=== PATIENT | female | born 1985 | race African-American/Black ===

== ENCOUNTER 2017-03-17 09:28 | Emergency (ER) | payer MEDICAID ==
[~2017-03-17] VITALS: Ht 160 cm; Wt 90.0 kg
[~2017-03-17 09:28] MED LIST: AZIT500T2 PO; COLA100C5 PO; ERYT.5%O RIGHT EYE; FERR325T18 PO; VITA250T3 PO
[2017-03-17 09:31] VITALS: BP 119/72; PULSE 89; RESP 16; TEMP 98.3; O2SAT 100
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
[2017-03-17] MEDS ORDERED: IBUPROFEN 800 MG TAB PO ONE (10:30)
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
[2017-03-17] MEDS ORDERED: IBUP1TAB7 PO (11:13)
[2017-03-17] MEDS ORDERED: TRAM50TA PO (11:13)
== END 2017-03-17 12:21 | disposition home or self-care (01) ==
LOC: NEPK 09:28
DX: S83.92XA Sprain of unspecified site of left knee, initial encounter (principal); V29.9XXA Motorcycle rider (driver) (passenger) injured in unspecified traffic accident, initial encounter
CPT/HCPCS: 73564; 99283; E0113; L1830

== ENCOUNTER 2017-07-30 08:46 | Emergency (ER) | payer OTHER ==
[2017-07-30] VITALS (7 sets, daily range): BP systolic 106–130; BP diastolic 51–75; PULSE 88–140; RESP 16–18; TEMP 98.2–103.2; O2SAT 99–100
[~2017-07-30 08:46] MED LIST changes: +IBUP1TAB7 PO; +TRAM50TA PO
[2017-07-30] MEDS ORDERED: IOHEXOL 350 MG/ML 10 ML VIAL (for RAD DIAG) IVCONTRAST ONE (08:47)
[2017-07-30] MEDS ORDERED: HYDR-3580 PO (09:00)
[2017-07-30] MEDS ORDERED: ACETAMINOPHEN 325 MG TAB PO ONE (09:30)
[2017-07-30] MEDS ORDERED: SODIUM CHLOR 0.9% 1000 ML INJ 1,000 ML IV ONE ×2 (09:30)
[2017-07-30] MEDS ORDERED: AMPICILLIN-SULBACTAM INJ 3 GM in SODIUM CHLORIDE 0.9% INJ 100 ML IV ONE (09:30)
[2017-07-30] MEDS ORDERED: DEXAMETHASONE SOD PHOS 20 MG/5 ML VIAL IV PUSH ONE (09:30)
--- NOTE | 2017-07-30 09:31 | PD ---
HPI Chief Complaint: Cold / Flu Symptoms Time Seen by Provider: 09:08 Travel History International Travel<30 days: No Contact w/Intl Traveler<30days: No Traveled to known affect area: No History of Present Illness HPI Patient is a 31-year-old female who presents to the emergency room with multiple complaints. Patient reports that since yesterday, she has been having sore throat with fever and chills. Reports that this morning, she began to have chest pain. Patient reports that pain is located to her left breast, pain is sharp and stabbing in nature and is exacerbated with taking a deep breath. Reports no sob at this time. Denies any diaphoresis, denies n/v. Patient denies cough/congestion. Denies sick contacts. Denies any recent travels/trips. Denies using drugs or smoking tobacco. PFSH Past Medical History Diminished Hearing: No Musculoskeletal: Yes (TORN ACL ) Immunizations Current: Yes Tetanus Vaccination: > 5 Years Influenza Vaccination: No ?: Not LMP: 07/10/17 : 2 Para: 3 Miscarriage: 0 : 0 Ectopic : Yes Ovarian Cysts: Yes Tubal Ligation: Yes Past Surgical History Abdominal Surgery: Yes (C SEC) Section: Yes (X2) Other Surgery: Yes (LEFT FALLOPIAN TUBE REMOVED) Social History Alcohol Use: Yes (SOCIALLY MIX DRINKS) Tobacco Use: No Substance Use: No Allergies-Medications (Allergen,Severity, Reaction): Coded Allergies: No Known Allergies (Verified Adverse Reaction, Unknown, 07/30/17) Reported Meds & Prescriptions Reported Meds & Active Scripts Active Reported Hydrocodone-Acetaminophen 7.5 Mg-325 Mg Tab 1 Tab PO Q6H PRN Review of Systems General / Constitutional: No: Fever Eyes: No: Visual changes HENT: Positive: Headaches, Sore Throat, No: Lightheadedness, Neck Pain Cardiovascular: Positive: Chest Pain or Discomfort, Palpitations, No: Diaphoresis Respiratory: No: Cough, Shortness of Breath, Wheezing Gastrointestinal: No: Nausea, Vomiting, Diarrhea, Abdominal Pain Genitourinary: No: Dysuria Musculoskeletal: No: Pain Skin: No Rash Neurologic: No: Weakness Psychiatric: No: Depression Endocrine: No: Polydipsia Hematologic/Lymphatic: No: Easy Bruising Physical Exam Narrative GENERAL: Moderate distress SKIN: Focused skin assessment warm/dry. HEAD: Atraumatic. Normocephalic. EYES: Pupils equal and round. No scleral icterus. No injection or drainage. ENT: No nasal bleeding or discharge. Mucous membranes pink and moist. Patient with white pustules to b/l posterior pharynx NECK: Trachea midline. No JVD. CARDIOVASCULAR: Tachycardia. No murmur appreciated. RESPIRATORY: No accessory muscle use. Clear to auscultation. Breath sounds equal bilaterally. GASTROINTESTINAL: Abdomen soft, non-tender, nondistended. Hepatic and splenic margins not palpable. MUSCULOSKELETAL: No obvious deformities. No clubbing. No cyanosis. No edema. NEUROLOGICAL: Awake and alert. No obvious cranial nerve deficits. Motor grossly within normal limits. Normal speech. PSYCHIATRIC: Appropriate mood and affect; insight and judgment normal. Data Data Last Documented VS Vital Signs Date Time Temp Pulse Resp B/P (MAP) Pulse Ox O2 Delivery O2 Flow Rate FiO2 07/30/17 14:17 98.2 101 18 115/68 (84) 100 Room Air Orders Orders Sepsis Workup Initiated (07/30/17 ) Electrocardiogram (07/30/17 09:16) Complete Blood Count With Diff (07/30/17 09:16) Comprehensive Metabolic Panel (07/30/17 09:16) Lactic Acid Sepsis Protocol (07/30/17 09:16) Magnesium (Mg) (07/30/17 09:16) Ckmb (Isoenzyme) Profile (07/30/17 09:16) Troponin I (07/30/17 09:16) Urinalysis - C+S If Indicated (07/30/17 09:16) Blood Culture (07/30/17 09:16) Chest, Single Ap (07/30/17 09:16) Blood Glucose (07/30/17 09:16) Ecg Monitoring (07/30/17 09:16) Iv Access Insert/Monitor (07/30/17 09:16) Oximetry (07/30/17 09:16) Oxygen Administration (07/30/17 09:16) D-Dimer (07/30/17 09:16) Prothrombin Time / Inr (Pt) (07/30/17 09:16) Act Partial Throm Time (Ptt) (07/30/17 09:16) Group A Rapid Strep Screen (07/30/17 09:16) Sodium Chlor 0.9% 1000 Ml Inj (Ns 1000 M (07/30/17 09:30) Sodium Chlor 0.9% 1000 Ml Inj (Ns 1000 M (07/30/17 09:30) Ampicillin-Sulbactam Inj (Unasyn Inj) (07/30/17 09:30) Dexamethasone Inj (Decadron Inj) (07/30/17 09:30) Ed Urine Pregnancytest Poc (07/30/17 09:16) Acetaminophen (Tylenol) (07/30/17 09:30) Ct Pulmonary Angiogram (07/30/17 10:23) Potassium Chloride (Kcl) (07/30/17 10:30) CKMB (07/30/17 09:00) CKMB% (07/30/17 09:00) Iohexol 350 Inj (Omnipaque 350 Inj) (07/30/17 08:47) Sodium Chlorid 0.9% 500 Ml Inj (Ns 500 M (07/30/17 13:15) Labs Laboratory Tests Test 07/30/17 09:00 07/30/17 09:35 07/30/17 10:50 White Blood Count 12.0 TH/MM3 Red Blood Count 4.14 MIL/MM3 Hemoglobin 11.1 GM/DL Hematocrit 34.1 % Mean Corpuscular Volume 82.4 FL Mean Corpuscular Hemoglobin 26.7 PG Mean Corpuscular Hemoglobin Concent 32.4 % Red Cell Distribution Width 14.3 % Platelet Count 291 TH/MM3 Mean Platelet Volume 9.1 FL Neutrophils (%) (Auto) 84.9 % Lymphocytes (%) (Auto) 9.1 % Monocytes (%) (Auto) 5.8 % Eosinophils (%) (Auto) 0.0 % Basophils (%) (Auto) 0.2 % Neutrophils # (Auto) 10.2 TH/MM3 Lymphocytes # (Auto) 1.1 TH/MM3 Monocytes # (Auto) 0.7 TH/MM3 Eosinophils # (Auto) 0.0 TH/MM3 Basophils # (Auto) 0.0 TH/MM3 CBC Comment DIFF FINAL Differential Comment Prothrombin Time 11.4 SEC Prothromb Time International Ratio 1.1 RATIO Activated Partial Thromboplast Time 30.7 SEC D-Dimer Quantitative (PE/DVT) 0.51 MG/L FEU Blood Urea Nitrogen 6 MG/DL Creatinine 0.75 MG/DL Random Glucose 116 MG/DL Total Protein 7.5 GM/DL Albumin 3.3 GM/DL Calcium Level 8.4 MG/DL Magnesium Level 1.9 MG/DL Alkaline Phosphatase 96 U/L Aspartate Amino Transf (AST/SGOT) 25 U/L Alanine Aminotransferase (ALT/SGPT) 28 U/L Total Bilirubin 0.5 MG/DL Sodium Level 137 MEQ/L Potassium Level 3.2 MEQ/L Chloride Level 102 MEQ/L Carbon Dioxide Level 26.6 MEQ/L Anion Gap 8 MEQ/L Estimat Glomerular Filtration Rate 108 ML/MIN Total Creatine Kinase 101 U/L Creatine Kinase MB LESS THAN 0.5 NG/ML Troponin I LESS THAN 0.02 NG/ML Lactic Acid Level 0.9 mmol/L Urine Color YELLOW Urine Turbidity HAZY Urine pH 6.5 Urine Specific [place] 1.026 Urine Protein 30 mg/dL Urine Glucose (UA) NEG mg/dL Urine Ketones 80 mg/dL Urine Occult Blood NEG Urine Nitrite NEG Urine Bilirubin NEG Urine Urobilinogen 2.0 MG/DL Urine Leukocyte Esterase NEG Urine RBC 1 /hpf Urine WBC 1 /hpf Urine Squamous Epithelial Cells 5 /hpf Urine Mucus FEW /lpf Microscopic Urinalysis Comment CATH-CULT NOT IND MDM Medical Decision Making Medical Screen Exam Complete: Yes Emergency Medical Condition: Yes Medical Record Reviewed: Yes Interpretation(s) Vital Signs Date Time Temp Pulse Resp B/P (MAP) Pulse Ox O2 Delivery O2 Flow Rate FiO2 07/30/17 09:00 123 18 121/75 (90) 100 Room Air 07/30/17 08:50 103.2 140 16 130/68 (88) 99 Differential Diagnosis Differential includes strep pharyngitis, pneumonia, endocarditis, pericarditis, bacteremia, viral syndrome Narrative Course During the course of the patients emergency department visit, the patients history, examination, and differential diagnosis were reviewed with the patient. The patient was placed on a quality assurance monitor chassis with oximetry and frequent blood pressure monitoring. The patient had an IV access obtained and blood work sent for analysis. Patient presents tachycardic and febrile, patient with SIRS criteria, sepsis workup was initiated. The patient was initially provided IV fluids, IV Unasyn as she was likely has strep pharyngitis, IV steroids as well as Toradol and Tylenol for her fever. The patients laboratory studies were reviewed and remarkable for CBC & BMP Diagram 07/30/17 09:00 Total Protein 7.5, Albumin 3.3 L, Calcium Level 8.4 L, Magnesium Level 1.9, Alkaline Phosphatase 96, Aspartate Amino Transf (AST/SGOT) 25, Alanine Aminotransferase (ALT/SGPT) 28, Total Bilirubin 0.5 Lactic acid is 0.9 Microbiology Date/Time Source Procedure Growth Status 07/30/17 09:30 Blood Peripheral Aerobic Blood Culture Pending Received 07/30/17 09:30 Blood Peripheral Anaerobic Blood Culture Pending Received 07/30/17 09:15 Blood Peripheral Aerobic Blood Culture Pending Received 07/30/17 09:15 Blood Peripheral Anaerobic Blood Culture Pending Received 07/30/17 09:30 Throat Group A Streptococcus Screen (BABAR) - Final Pos For Grp A Strep Antigen Complete Radiology studies were reviewed and remarkable for Last Impressions Chest X-Ray 07/30/17915 Signed Impressions: CONCLUSION: No acute cardiopulmonary findings. Patient with a d-dimer of 0.51, discussed with patient need for CTA to rule out PE. Patient agreeable with plan of care. Overall, patient reports that she is feeling much better at this time. Last Impressions CT Angiography 07/30/17 1023 Signed Impressions: CONCLUSION: 1. Negative for pulmonary embolus. No acute findings. Chest X-Ray 07/30/17915 Signed Impressions: CONCLUSION: No acute cardiopulmonary findings. All labs and all studies were reviewed, patient with only positive finding of positive for group A strep. Patient was reevaluated and request to be discharged to home, she does not wish for admission to the hospital. Patient has been pancultured at this time, reports that she will return to the emergency room if her cultures are positive. Signs and symptoms of when to return to the emergency room was reviewed with patient in detail. Vital Signs Date Time Temp Pulse Resp B/P (MAP) Pulse Ox O2 Delivery O2 Flow Rate FiO2 07/30/17 14:17 98.2 101 18 115/68 (84) 100 Room Air 07/30/17 11:00 110 18 108/51 (70) 100 Room Air 07/30/17 10:00 120 16 125/60 (81) 100 Room Air 07/30/17 09:00 100 Room Air 07/30/17 09:00 123 18 121/75 (90) 100 Room Air 07/30/17 08:50 103.2 140 16 130/68 (88) 99 VSS at discharge Sepsis Criteria SIRS Criteria (2 or more): Temp > 100.9 or < 96.8, Heart rate over 90, WBC > 50958, < 4000 or > 10% bands Criteria Outcome: Meets SIRS criteria Diagnosis Primary Impression: Strep pharyngitis Patient Instructions: General Instructions Additional Instructions: Please provide patient with a copy of their lab work and studies at discharge* * Please follow up with your primary care doctor in 1-2 days Return to the ER if symptoms worsen or progress Return to the ER as needed Please follow up with all cultures from today Drink plenty of fluids Med/Other Pt SpecificInfo: Prescription(s) given Scripts Amoxicillin-Clavulanate (Augmentin) 875-125 Mg Tab 1 TAB PO BID for Infection for 10 Days, #20 TAB 0 Refills Prov: Rozina Vega DO 07/30/17 Disposition: 01 DISCHARGE HOME Condition: Stable Rozina Vega DO July 30, 2017 09:31
--- NOTE | 2017-07-30 09:49 | RADRPT ---
EXAM DATE: 07/30/2017 9:43 AM EDT AGE/SEX: 31 years / Female INDICATIONS: Chest pain, sore throat, and fever. CLINICAL DATA: This is the patient's initial encounter. Patient reports that signs and symptoms have been present for 1 day and indicates a pain score of 9/10. MEDICAL/SURGICAL HISTORY: None. None. COMPARISON: No prior [place] exams available for comparison. FINDINGS: A single AP view of the chest demonstrates the lungs to be symmetrically aerated without evidence of mass, infiltrate or effusion. The cardiomediastinal contours are unremarkable. Osseous structures a re intact. CONCLUSION: No acute cardiopulmonary findings. Electronically signed by: Isaac Leblanc MD 07/30/2017 9:48 AM EDT
[2017-07-30 09:54] LABS: AUTOMATED NEUTROPHIL # 10.2 TH/MM3 (1.8-7.7); BASOPHIL % 0.2 % (0.0-2.0); HEMATOCRIT 34.1 % (35.0-46.0); HEMOGLOBIN 11.1 GM/DL (11.6-15.3); LYMPH % 9.1 % (9.0-44.0); LYMPHOCYTE # 1.1 TH/MM3 (1.0-4.8); MEAN CELL VOLUME 82.4 FL (80.0-100.0); MEAN CORPUSCULAR HEMOGLOBIN 26.7 PG (27.0-34.0); MEAN CORPUSCULAR HGB CONC 32.4 % (32.0-36.0); MEAN PLATELET VOLUME 9.1 FL (7.0-11.0); MONO % 5.8 % (0.0-8.0); MONOCYTE # 0.7 TH/MM3 (0-0.9); NEUT % 84.9 % (16.0-70.0); PLATELET COUNT 291 TH/MM3 (150-450); RED BLOOD COUNT 4.14 MIL/MM3 (4.00-5.30); RED CELL DISTRIBUTION WIDTH 14.3 % (11.6-17.2)
[2017-07-30 10:08] LABS: INTERNATIONAL NORMALIZED RATIO 1.1 RATIO; PROTHROMBIN TIME - PATIENT 11.4 SEC (9.8-11.6)
[2017-07-30 10:12] LABS: D-DIMER 0.51 MG/L FEU (0.00-0.50)
[2017-07-30 10:19] LABS: ALBUMIN 3.3 GM/DL (3.4-5.0); AST (GOT) 25 U/L (15-37); BICARBONATE 26.6 MEQ/L (21.0-32.0); BLOOD UREA NITROGEN 6 MG/DL (7-18); CALCIUM 8.4 MG/DL (8.5-10.1); CHLORIDE 102 MEQ/L (98-107); CREATININE 0.75 MG/DL (0.50-1.00); GLOMERULAR FILTRATION RATE 108 ML/MIN (>89); GLUCOSE,RANDOM 116 MG/DL (74-106); MAGNESIUM 1.9 MG/DL (1.5-2.5); SODIUM (NA) 137 MEQ/L (136-145)
[2017-07-30 10:21] LABS: ALT (GPT) 28 U/L (10-53)
[2017-07-30 10:24] LABS: ALKALINE PHOSPHATASE 96 U/L (45-117); TOTAL BILIRUBIN ADULT 0.5 MG/DL (0.2-1.0); TOTAL PROTEIN 7.5 GM/DL (6.4-8.2); TROPONIN I LESS THAN 0.02 NG/ML (0.02-0.05)
[2017-07-30] MEDS ORDERED: POTASSIUM CHLORIDE 10 MEQ CONTROLLED RELEASE TAB PO ONE (10:30)
[2017-07-30 11:18] LABS: BILIRUBIN, URINE NEG (NEG); BLOOD, URINE NEG (NEG); GLUCOSE,URINE NEG (NEG); KETONE, URINE 80 mg/dL (NEG); MUCUS URINE FEW /lpf (OCC); NITRITE,URINE NEG (NEG); PH, URINE 6.5 (5.0-8.5); SQUAMOUS EPITHELIAL CELL URINE 5 /hpf (0-5); URINE COLOR YELLOW (YELLW/STRAW); URINE LEUKOCYTE ESTERASE NEG (NEG)
--- NOTE | 2017-07-30 12:49 | RADRPT ---
EXAM DATE: 07/30/2017 12:31 PM EDT AGE/SEX: 31 years / Female INDICATIONS: Chest pain, shortness of breath, fever. CLINICAL DATA: This is the patient's initial encounter. Patient reports that signs and symptoms have been present for 1 day and indicates a pain score of 4/10. MEDICAL/SURGICAL HISTORY: None. Tubal ligation. RADIATION DOSE: 10.44 CTDI (mGy) COMPARISON: No prior exams available for comparison. TECHNIQUE: Volumetric scanning was performed using a multi-row detector CT scanner during bolus infu sami of 75 ml Omnipaque 350 (iohexol) nonionic water-soluble contrast as a single exam dose. The parker a was post processed with a variety of visualization algorithms including full volume maximum intensi ty projection and sliding thin slab reformation. Using automated exposure control and adjustment of the mA and/or kV according to patient size, radiation dose was kept as low as reasonably achievable t o obtain optimal diagnostic quality images. FINDINGS: No filling defects in the pulmonary arteries to suggest pulmonary embolic disease. Minimal dependent atelectasis in the lungs. No pleural or pericardial effusion. There is no hilar, mediastinal or axillary adenopathy. No acute findings in the upper abdomen. CONCLUSION: 1. Negative for pulmonary embolus. No acute findings. Electronically signed by: Camron Larsen MD 07/30/2017 12:48 PM EDT
[2017-07-30] MEDS ORDERED: SODIUM CHLORID 0.9% 500 ML INJ 500 ML IV ONE (13:15)
--- NOTE | 2017-07-30 13:53 | EKG ---
Date Performed: 07/30/2017 Time Performed: 10:10:28 PTAGE: 31 years EKG: SINUS TACHYCARDIA WITH SHORT CA INTERVAL NONSPECIFIC ST & T-WAVE ABNORMALITY ABNORMAL ECG NO PREVIOUS TRACING DOCTOR: Michele Green Interpretating Date/Time 07/30/2017 13:51:29
[2017-07-30] MEDS ORDERED: AUGM875T3 PO (14:45)
== END 2017-07-30 15:25 | disposition home or self-care (01) ==
LOC: NEPC 08:46
DX: J02.0 Streptococcal pharyngitis (principal); R00.0 Tachycardia, unspecified
CPT/HCPCS: 71045; 71275; 80053; 81001; 82550; 82552; 83605; 83735; 84484; 84703; 85025; 85379; 85610; 85730; 87040; 87880; 93005; 96361; 96365; 96375; 99285; J0295; J1100; J7030; J7040; Q9967